=== PATIENT | male | born 1985 | race Caucasian/White ===

== ENCOUNTER 2017-04-30 00:53 | Inpatient (IN) | payer MEDICAID ==
[~2017-04-30] VITALS: Ht 170.2 cm; Wt 63.1 kg
[2017-04-30] MEDS ORDERED: HYDROcodone/APAP 5/325 TABLET ONE (01:38)
[2017-04-30] MEDS ORDERED: HYDROcodone/APAP 5/325 TABLET PO ONE (02:00)
[2017-04-30 02:22] LABS: ASPARTATE AMINO TRANSFERASE 43 U/L (15-37); BLOOD UREA NITROGEN 20 mg/dL (7-18)
[2017-04-30 02:33] LABS: DIFF TOTAL CELLS COUNTED 100 CELL DIFF
[2017-04-30 02:36] LABS: HIV 1&2 ANTIBODY SCREEN Nonreactive (Nonreactive); HIV-1 p24 ANTIGEN Nonreactive (Nonreactive)
[2017-04-30 02:37] LABS: VERIFY COUNTS? YES
[2017-04-30] MEDS ORDERED: CEFTRIAXONE PMX 1GM/50ML 50 ML ONE (02:56)
[2017-04-30] MEDS ORDERED: VANCOMYCIN PER PHARMACY MC PRN ×2 (03:00→05:00)
[2017-04-30] MEDS ORDERED: CEFTRIAXONE PMX 1GM/50ML 50 ML IV ONE (03:00)
[2017-04-30] MEDS ORDERED: SODIUM CHLORIDE 0.9% 1,000ML IVBOLUS ONE (03:00)
[2017-04-30] MEDS ORDERED: SODIUM CHLORIDE FLUSH 10ML SYR IVF ONE (03:00)
[2017-04-30] MEDS ORDERED: KETOROLAC 30 MG/1 ML ONE (03:29)
[2017-04-30] MEDS ORDERED: KETOROLAC 30 MG/1 ML IVPush ONE (03:30)
[2017-04-30] MEDS ORDERED: VANCOMYCIN 1,200 MG in SODIUM CHLORIDE 0.9% 250 ML IV SCH (03:30)
[2017-04-30] MEDS ORDERED: ZOLPIDEM 5MG TABLET PO PRN (05:00)
[2017-04-30] MEDS ORDERED: ONDANSETRON 2MG/ML, 2ML IVPush PRN (05:00)
[2017-04-30] MEDS ORDERED: ACETAMINOPHEN 325 MG TABLET PO PRN (05:00)
[2017-04-30] MEDS ORDERED: LORazepam 2 MG/ML, 1ML IVPush PRN (05:00)
[2017-04-30] MEDS ORDERED: morphine SULFATE 10 MG/ML, 1ML IVPush PRN (05:00)
[2017-04-30] MEDS ORDERED: DOCUSATE 100 MG CAPSULE PO PRN (05:00)
[2017-04-30] MEDS ORDERED: POLYETHYLENE GLYCOL 17 GM PACKET PO PRN (05:00)
[2017-04-30] MEDS ORDERED: BISACODYL 10 MG SUPP PR PRN (05:00)
[2017-04-30] MEDS ORDERED: VANCOMYCIN 1,200 MG in SODIUM CHLORIDE 0.9% 250 ML IV ONE (05:30)
[2017-04-30] MEDS ORDERED: PHARMACOKINETIC MONITORING MC PRN (05:30)
[2017-04-30] MEDS: NICOTINE 21 MG/24 HR PATCH.TD24 TD SCH (05:42)
[2017-04-30] MEDS: NS + 20MEQ KCL 1,000 ML IV SCH ×2 (05:42→12:33)
[2017-04-30] MEDS: GABAPENTIN 100 MG CAPSULE PO SCH ×4 (05:42→23:06)
[2017-04-30] MEDS ORDERED: OMNIPAQUE 350 MG/ML, 100ML BOTTLE ONE (05:47)
[2017-04-30 05:48] VITALS: BP 132/89
[2017-04-30 07:12] VITALS: BP 132/83
[2017-04-30] MEDS: OXYcodone IR 5MG TABLET PO PRN ×3 (08:15→23:45)
[2017-04-30] MEDS: ENOXAPARIN 40 MG/0.4 ML SQ SCH (08:16)
[2017-04-30 08:39] LABS: HEP B SURF. AB < 3.1 mIU/mL (0.0-10.0)
[2017-04-30 09:17] LABS: HEPATITIS C VIRUS ANTIBODY Reactive (Nonreactive)
[2017-04-30] MEDS ORDERED: NS + 20MEQ KCL 1,000 ML IV SCH ×2 (13:30)
[2017-04-30 14:12] VITALS: BP 108/64
[2017-04-30] MEDS: CEFTRIAXONE PMX 1GM/50ML 50 ML IV SCH (15:56)
[2017-04-30] MEDS: VANCOMYCIN PMX 1GM/200ML 200 ML IVPB SCH (16:47)
[2017-04-30 19:10] VITALS: BP 98/61
[2017-05-01] MEDS: CEFTRIAXONE PMX 1GM/50ML 50 ML IV SCH ×2 (03:19→15:32)
[2017-05-01] MEDS: OXYcodone IR 5MG TABLET PO PRN ×4 (03:23→21:07)
[2017-05-01 03:31] VITALS: BP 106/68
[2017-05-01] MEDS: VANCOMYCIN PMX 1GM/200ML 200 ML IVPB SCH ×2 (04:09→16:15)
[2017-05-01] MEDS: NICOTINE 21 MG/24 HR PATCH.TD24 TD SCH (05:07)
[2017-05-01 05:40] LABS: BLOOD UREA NITROGEN 13 mg/dL (7-18)
[2017-05-01 06:42] LABS: DIFF TOTAL CELLS COUNTED 100 CELL DIFF
[2017-05-01 07:11] LABS: VERIFY COUNTS? YES
[2017-05-01] MEDS: GABAPENTIN 100 MG CAPSULE PO SCH ×3 (08:51→21:07)
[2017-05-01] MEDS: ENOXAPARIN 40 MG/0.4 ML SQ SCH (08:51)
[2017-05-01 15:47] VITALS: BP 109/64
[2017-05-01] MEDS ORDERED: BISACODYL 10 MG SUPP PR PRN (16:00)
[2017-05-01] MEDS ORDERED: ACETAMINOPHEN 325 MG TABLET PO PRN (16:00)
[2017-05-01] MEDS ORDERED: LORazepam 2 MG/ML, 1ML IVPush PRN (16:00)
[2017-05-01] MEDS ORDERED: ZOLPIDEM 5MG TABLET PO PRN (16:00)
[2017-05-01] MEDS ORDERED: PHARMACOKINETIC MONITORING MC PRN (16:00)
[2017-05-01] MEDS ORDERED: ONDANSETRON 2MG/ML, 2ML IVPush PRN (16:00)
[2017-05-01] MEDS ORDERED: VANCOMYCIN PER PHARMACY MC PRN (16:00)
[2017-05-01] MEDS ORDERED: DOCUSATE 100 MG CAPSULE PO PRN (16:00)
[2017-05-01] MEDS ORDERED: morphine SULFATE 10 MG/ML, 1ML IVPush PRN (16:00)
[2017-05-01 19:04] VITALS: BP 96/59
[2017-05-01] MEDS: KETOROLAC 30 MG/1 ML IVPush PRN (21:07)
[2017-05-02 02:06] VITALS: BP 105/64
[2017-05-02] MEDS: CEFTRIAXONE PMX 1GM/50ML 50 ML IV SCH ×2 (03:24→17:08)
[2017-05-02] MEDS: OXYcodone IR 5MG TABLET PO PRN ×4 (03:39→23:37)
[2017-05-02] MEDS: KETOROLAC 30 MG/1 ML IVPush PRN (03:39)
[2017-05-02 03:50] LABS: BLOOD UREA NITROGEN 17 mg/dL (7-18)
[2017-05-02 03:53] LABS: ASPARTATE AMINO TRANSFERASE 54 U/L (15-37)
[2017-05-02 04:03] LABS: DIFF TOTAL CELLS COUNTED 100 CELL DIFF
[2017-05-02 04:06] LABS: VERIFY COUNTS? YES
[2017-05-02] MEDS: VANCOMYCIN PMX 1GM/200ML 200 ML IVPB SCH (04:18)
[2017-05-02] MEDS: NICOTINE 21 MG/24 HR PATCH.TD24 TD SCH (04:18)
[2017-05-02 08:09] VITALS: BP 93/57
[2017-05-02] MEDS: GABAPENTIN 100 MG CAPSULE PO SCH ×3 (08:22→21:31)
[2017-05-02] MEDS: ENOXAPARIN 40 MG/0.4 ML SQ SCH (08:22)
[2017-05-02] MEDS ORDERED: POTASSIUM CHLORIDE 20 MEQ TAB.ER.PRT PO ONE (08:30)
[2017-05-02 13:34] VITALS: BP 94/57
[2017-05-02] MEDS ORDERED: SODIUM CHLORIDE 0.9% 1,000ML IVBOLUS ONE (14:00)
[2017-05-02] MEDS ORDERED: ACETAMINOPHEN 325 MG TABLET PO PRN (14:00)
[2017-05-02] MEDS ORDERED: VANCOMYCIN 1,100 MG in SODIUM CHLORIDE 0.9% 250 ML IVPB SCH (14:00)
[2017-05-02] MEDS: VANCOMYCIN 1,100 MG in SODIUM CHLORIDE 0.9% 250 ML IVPB SCH (18:00)
[2017-05-02 18:24] VITALS: BP 106/66
[2017-05-03 01:57] VITALS: BP 101/61
[2017-05-03] MEDS: NICOTINE 21 MG/24 HR PATCH.TD24 TD SCH (04:41)
[2017-05-03] MEDS: OXYcodone IR 5MG TABLET PO PRN ×4 (04:57→21:44)
[2017-05-03 05:15] LABS: BLOOD UREA NITROGEN 17 mg/dL (7-18)
[2017-05-03] MEDS: CEFTRIAXONE PMX 1GM/50ML 50 ML IV SCH ×2 (05:31→17:14)
[2017-05-03] MEDS: VANCOMYCIN 1,100 MG in SODIUM CHLORIDE 0.9% 250 ML IVPB SCH ×2 (06:28→18:07)
[2017-05-03 07:12] VITALS: BP 102/53
[2017-05-03] MEDS: KETOROLAC 30 MG/1 ML IVPush PRN ×2 (09:08→21:32)
[2017-05-03] MEDS: GABAPENTIN 100 MG CAPSULE PO SCH ×3 (09:08→21:32)
[2017-05-03] MEDS: ENOXAPARIN 40 MG/0.4 ML SQ SCH (09:08)
[2017-05-03 13:40] VITALS: BP 101/59
[2017-05-03 19:46] VITALS: BP 135/73
[2017-05-04 04:27] VITALS: BP 125/70
[2017-05-04] MEDS: KETOROLAC 30 MG/1 ML IVPush PRN ×3 (05:18→21:19)
[2017-05-04] MEDS: NICOTINE 21 MG/24 HR PATCH.TD24 TD SCH (05:19)
[2017-05-04] MEDS: CEFTRIAXONE PMX 1GM/50ML 50 ML IV SCH ×2 (05:19→17:02)
[2017-05-04] MEDS: OXYcodone IR 5MG TABLET PO PRN ×4 (05:31→21:19)
[2017-05-04 06:15] LABS: BLOOD UREA NITROGEN 14 mg/dL (7-18)
[2017-05-04 06:20] LABS: ASPARTATE AMINO TRANSFERASE 43 U/L (15-37)
[2017-05-04] MEDS: VANCOMYCIN 1,100 MG in SODIUM CHLORIDE 0.9% 250 ML IVPB SCH ×2 (06:20→18:19)
[2017-05-04 08:30] VITALS: BP 107/61
[2017-05-04] MEDS: GABAPENTIN 100 MG CAPSULE PO SCH ×3 (09:34→21:19)
[2017-05-04] MEDS: ENOXAPARIN 40 MG/0.4 ML SQ SCH (09:34)
[2017-05-04 12:45] VITALS: BP 102/52
[2017-05-04 19:20] VITALS: BP 110/66
[2017-05-05 02:07] VITALS: BP 124/71
[2017-05-05] MEDS: morphine SULFATE 10 MG/ML, 1ML IVPush PRN ×4 (02:30→15:56)
[2017-05-05] MEDS: CEFTRIAXONE PMX 1GM/50ML 50 ML IV SCH ×2 (04:41→16:33)
[2017-05-05] MEDS: NICOTINE 21 MG/24 HR PATCH.TD24 TD SCH (04:44)
[2017-05-05] MEDS: VANCOMYCIN 1,100 MG in SODIUM CHLORIDE 0.9% 250 ML IVPB SCH ×2 (06:00→18:09)
[2017-05-05 07:50] VITALS: BP 124/73
[2017-05-05] MEDS: ENOXAPARIN 40 MG/0.4 ML SQ SCH (08:01)
[2017-05-05] MEDS: GABAPENTIN 100 MG CAPSULE PO SCH ×3 (08:01→20:31)
[2017-05-05] MEDS ORDERED: FENTANYL PF 250 MCG/5ML ONE (12:26)
[2017-05-05] MEDS ORDERED: BACITRACIN 50,000 UNIT ONE (12:27)
[2017-05-05] MEDS ORDERED: HYDROmorphone 1 MG/ML, 1ML IV PRN (13:00)
[2017-05-05] MEDS ORDERED: ONDANSETRON 2MG/ML, 2ML IVPush PRN (13:00)
[2017-05-05] MEDS ORDERED: OXYcodone 5 MG/5 ML ORAL.SOL UDC PO PRN (13:00)
[2017-05-05] MEDS ORDERED: LABETALOL 5MG/ML, 20ML IV PRN (13:00)
[2017-05-05] MEDS ORDERED: ACETAMINOPHEN 325 MG TABLET PO PRN (13:00)
[2017-05-05] MEDS ORDERED: MEPERIDINE/PF 25MG/0.5ML IVPush PRN (13:00)
[2017-05-05] MEDS ORDERED: PROMETHAZINE 25 MG/ML, 1ML IV PRN (13:00)
[2017-05-05] MEDS ORDERED: ROCURONIUM 10 MG/ML ONE (13:01)
[2017-05-05] MEDS ORDERED: PROPOFOL 10 MG/ML, 20ML ONE (13:01)
[2017-05-05] MEDS ORDERED: SUCCINYLCHOLINE 20 MG/ML, 10ML ONE (13:01)
[2017-05-05] MEDS ORDERED: OXYcodone 5 MG/5 ML ORAL.SOL UDC ONE (13:46)
[2017-05-05] MEDS ORDERED: FENTANYL PF 100 MCG/2ML ONE (13:46)
[2017-05-05] MEDS ORDERED: ACETAMINOPHEN 650 MG/20.3 ML UDC ONE (13:46)
[2017-05-05] MEDS ORDERED: ACETAMINOPHEN 325 MG/10.15 ML UDC ONE (13:46)
[2017-05-05] MEDS: FENTANYL PF 100 MCG/2ML IV PRN ×2 (13:51→13:59)
[2017-05-05 14:35] VITALS: BP 114/64
[2017-05-05] MEDS: OXYcodone IR 5MG TABLET PO PRN (17:52)
[2017-05-05 20:29] VITALS: BP 120/67
[2017-05-05 23:27] VITALS: BP 106/65
[2017-05-06] MEDS: OXYcodone IR 5MG TABLET PO PRN ×5 (00:27→20:34)
[2017-05-06 03:59] VITALS: BP 107/64
[2017-05-06] MEDS: CEFTRIAXONE PMX 1GM/50ML 50 ML IV SCH ×2 (05:02→17:12)
[2017-05-06] MEDS: NICOTINE 21 MG/24 HR PATCH.TD24 TD SCH (05:02)
[2017-05-06] MEDS: VANCOMYCIN 1,100 MG in SODIUM CHLORIDE 0.9% 250 ML IVPB SCH (05:59)
[2017-05-06 06:16] LABS: BLOOD UREA NITROGEN 8 mg/dL (7-18)
[2017-05-06 09:09] VITALS: BP 113/73
[2017-05-06] MEDS: GABAPENTIN 100 MG CAPSULE PO SCH ×3 (09:41→20:34)
[2017-05-06] MEDS: ENOXAPARIN 40 MG/0.4 ML SQ SCH (09:41)
[2017-05-06 12:52] VITALS: BP_SYST 110; BP_SYST 116; BP_DIAS 67; BP_DIAS 69
[2017-05-06] MEDS ORDERED: VANCOMYCIN 1,100 MG in SODIUM CHLORIDE 0.9% 250 ML IVPB SCH (14:00)
[2017-05-06 19:36] VITALS: BP 110/67
== END 2017-05-06 20:30 | disposition short-term general hospital (02) | DRG 573 ==
LOC: ED 01:20 → EDIP 03:30 → 4NOR 05:10
PROC: 0XB20ZZ Excision of Right Shoulder Region, Open Approach (ICD-10-PCS; principal; 2017-04-30)
DX: L02.413 Cutaneous abscess of right upper limb (principal); E43 Unspecified severe protein-calorie malnutrition; R65.10 Systemic inflammatory response syndrome (SIRS) of non-infectious origin without acute organ dysfunction; E87.1 Hypo-osmolality and hyponatremia; L02.212 Cutaneous abscess of back [any part, except buttock and flank]; F11.20 Opioid dependence, uncomplicated; B19.20 Unspecified viral hepatitis C without hepatic coma; B95.62 Methicillin resistant Staphylococcus aureus infection as the cause of diseases classified elsewhere; D64.9 Anemia, unspecified; R73.02 Impaired glucose tolerance (oral); F15.10 Other stimulant abuse, uncomplicated; F17.210 Nicotine dependence, cigarettes, uncomplicated; J44.9 Chronic obstructive pulmonary disease, unspecified; L02.424 Furuncle of left upper limb; Z68.21 Body mass index [BMI] 21.0-21.9, adult
CPT/HCPCS: 36415; 71010; 80048; 80053; 80202; 81001; 83605; 83735; 84100; 84145; 85025; 85651; 86141; 86703; 86705; 86706; 86803; 87040; 87070; 87075; 87077; 87086; 87147; 87186; 87205; 87340; 87521; 87899; 93306; 96365; 96367; 96375; J0696; J1650; J1885; J2704; J3010; J3370; J3480; Q9967; G0435; J0330; J2270; J7030; J7050